=== PATIENT | female | born 1940 | race Caucasian/White ===

== ENCOUNTER 2021-07-26 10:10 | Inpatient (IN) ==
[2021-07-26] MEDS ORDERED: GLUCAGON 1 MG VIAL IM PRN (12:50)
[2021-07-26] MEDS ORDERED: ONDANSETRON 4 MG/2 ML VIAL IV PRN (12:50)
[2021-07-26] MEDS ORDERED: DEXTROSE 10% 250 ML BAG IV PRN (13:06)
[2021-07-26 13:30] LABS: Basophils % 0.3 % (0.0-0.8); Eosinophils # 0.2 10*3/uL (0.0-0.87); Eosinophils % 2.1 % (0.00-10.9); Hematocrit 35.3 VOL% (35.7-47.0); Hemoglobin 11.2 GM/DL (12.0-16.0); Immature Granulocytes % 0.4 %; Immature Granulocytes Absolute 0.04 #; Lymphocytes # 0.7 10*3/uL (1.4-4.0); Lymphocytes % 7.9 % (21.3-54.2); Mean Corpuscular HGB Conc 31.7 GM/DL (32-36); Mean Corpuscular Volume 90.1 FL (87-102); Mean Platelet Volume 9.4 FL (9.6-12.0); Monocytes # 0.7 10*3/uL (0.11-0.8); Monocytes % 7.1 % (1.7-12.7); Neutrophils % 82.2 % (38.7-73.9); Platelet Count 478 T/CUMM (130-400); Red Blood Count 3.92 MC/CUMM (3.8-5.5); Red Cell Distribution Width 13.8 % (9.3-17.3); White Blood Count 9.3 T/CUMM (4-12)
[2021-07-26 13:52] LABS: Albumin 2.4 G/DL (3.4-5.0); Bilirubin,Total 0.4 MG/DL (0.20-1.00); Calcium 9.5 MG/DL (8.5-10.1); Osmolality,Calculated 276.5 MOS/KG (273-304); Potassium 3.9 MMOL/L (3.5-5.1)
[2021-07-26] MEDS: LEVOFLOXACIN INJ 750 MG/150 ML PREMIX IV SCH (14:16)
[2021-07-26] MEDS: ALBUTEROL/IPRATROPIUM 3 ML NEB RESP TX SCH ×2 (15:10→18:55)
[2021-07-26] MEDS: SIMETHICONE CHEW 125 MG TABLET PO SCH ×2 (17:52→21:07)
[2021-07-26] MEDS: guaiFENesin/DM ER 600-30 MG TABLET PO SCH (21:06)
[2021-07-26] MEDS: ENOXAPARIN 40 MG/0.4 ML SYRINGE SUBCUT SCH (21:08)
[2021-07-27] MEDS: ALBUTEROL/IPRATROPIUM 3 ML NEB RESP TX SCH ×4 (00:45→19:46)
[2021-07-27 05:05] LABS: Basophils # 0.1 10*3/uL (0.0-0.2); Basophils % 0.6 % (0.0-0.8); Eosinophils # 0.6 10*3/uL (0.0-0.87); Eosinophils % 7.5 % (0.00-10.9); Hematocrit 31.7 VOL% (35.7-47.0); Hemoglobin 9.8 GM/DL (12.0-16.0); Immature Granulocytes % 0.5 %; Immature Granulocytes Absolute 0.04 #; Mean Corpuscular HGB Conc 30.9 GM/DL (32-36); Mean Corpuscular Volume 91.1 FL (87-102); Mean Platelet Volume 8.8 FL (9.6-12.0); Monocytes # 0.7 10*3/uL (0.11-0.8); Monocytes % 9.2 % (1.7-12.7); Neutrophils % 69.2 % (38.7-73.9); Platelet Count 380 T/CUMM (130-400); Red Blood Count 3.48 MC/CUMM (3.8-5.5); Red Cell Distribution Width 13.8 % (9.3-17.3); White Blood Count 7.7 T/CUMM (4-12)
[2021-07-27 05:27] LABS: Calcium 8.7 MG/DL (8.5-10.1); Osmolality,Calculated 280.3 MOS/KG (273-304); Potassium 3.2 MMOL/L (3.5-5.1)
[2021-07-27] MEDS: LEVOTHYROXINE 88 MCG TABLET PO SCH (06:10)
[2021-07-27] MEDS ORDERED: POTASSIUM CHLORIDE 20 MEQ TABLET PO ONE (08:30)
[2021-07-27] MEDS: guaiFENesin/DM ER 600-30 MG TABLET PO SCH ×2 (08:32→20:49)
[2021-07-27] MEDS: buPROPion XL 150 MG TABLET PO SCH (08:32)
[2021-07-27] MEDS: PANTOPRAZOLE 40 MG TABLET PO SCH (08:32)
[2021-07-27] MEDS: CETIRIZINE 10 MG TABLET PO SCH (08:32)
[2021-07-27] MEDS: SIMETHICONE CHEW 125 MG TABLET PO SCH ×4 (08:32→20:49)
[2021-07-27] MEDS: MELOXICAM 7.5 MG TABLET PO SCH (08:33)
[2021-07-27] MEDS: FLUTICASONE 50 MCG NASAL SPRAY 16 GM BOTTLE BOTH NARES SCH (10:06)
[2021-07-27] MEDS: CALCIUM (CARBONATE)/VITAMIN D 600 MG-400 UNIT TABLET PO SCH (12:19)
[2021-07-27] MEDS: MECLIZINE 25 MG TABLET PO PRN (12:21)
[2021-07-27] MEDS: LEVOFLOXACIN INJ 750 MG/150 ML PREMIX IV SCH (14:34)
[2021-07-27] MEDS: BENZONATATE 100 MG CAPSULE PO PRN (17:39)
[2021-07-27] MEDS: ENOXAPARIN 40 MG/0.4 ML SYRINGE SUBCUT SCH (20:49)
[2021-07-28] MEDS: ALBUTEROL/IPRATROPIUM 3 ML NEB RESP TX SCH ×4 (00:02→19:55)
[2021-07-28] MEDS: LEVOTHYROXINE 88 MCG TABLET PO SCH (06:08)
[2021-07-28] MEDS ORDERED: POTASSIUM CHLORIDE 20 MEQ TABLET PO ONE (09:00)
[2021-07-28] MEDS: CETIRIZINE 10 MG TABLET PO SCH (09:33)
[2021-07-28] MEDS: buPROPion XL 150 MG TABLET PO SCH (09:34)
[2021-07-28] MEDS: PANTOPRAZOLE 40 MG TABLET PO SCH (09:34)
[2021-07-28] MEDS: guaiFENesin/DM ER 600-30 MG TABLET PO SCH ×2 (09:34→21:14)
[2021-07-28] MEDS: BENZONATATE 100 MG CAPSULE PO PRN ×2 (09:34→21:15)
[2021-07-28] MEDS: MELOXICAM 7.5 MG TABLET PO SCH (09:34)
[2021-07-28] MEDS: FERROUS SULFATE 325 MG TABLET PO SCH (09:34)
[2021-07-28] MEDS: MECLIZINE 25 MG TABLET PO PRN ×2 (09:34→21:15)
[2021-07-28] MEDS: FLUTICASONE 50 MCG NASAL SPRAY 16 GM BOTTLE BOTH NARES SCH (09:35)
[2021-07-28] MEDS: SIMETHICONE CHEW 125 MG TABLET PO SCH ×4 (09:35→21:15)
[2021-07-28 11:50] LABS: Osmolality,Calculated 275.5 MOS/KG (273-304); Potassium 3.9 MMOL/L (3.5-5.1)
[2021-07-28] MEDS: CALCIUM (CARBONATE)/VITAMIN D 600 MG-400 UNIT TABLET PO SCH (12:02)
[2021-07-28] MEDS: LEVOFLOXACIN INJ 750 MG/150 ML PREMIX IV SCH (14:34)
[2021-07-28] MEDS: ACETAMINOPHEN 325 MG TABLET PO PRN (16:02)
[2021-07-28] MEDS: ENOXAPARIN 40 MG/0.4 ML SYRINGE SUBCUT SCH (21:15)
[2021-07-29] MEDS: ALBUTEROL/IPRATROPIUM 3 ML NEB RESP TX SCH ×4 (00:10→19:45)
[2021-07-29 05:54] LABS: Calcium 9.2 MG/DL (8.5-10.1)
[2021-07-29] MEDS: LEVOTHYROXINE 88 MCG TABLET PO SCH (06:25)
[2021-07-29] MEDS ORDERED: FUROSEMIDE 40 MG/4 ML VIAL IV ONE (09:00)
[2021-07-29] MEDS: CETIRIZINE 10 MG TABLET PO SCH (09:02)
[2021-07-29] MEDS: PANTOPRAZOLE 40 MG TABLET PO SCH (09:02)
[2021-07-29] MEDS: guaiFENesin/DM ER 600-30 MG TABLET PO SCH ×2 (09:03→21:38)
[2021-07-29] MEDS: SIMETHICONE CHEW 125 MG TABLET PO SCH ×4 (09:03→21:38)
[2021-07-29] MEDS: MECLIZINE 25 MG TABLET PO PRN ×2 (09:03→21:38)
[2021-07-29] MEDS: MELOXICAM 7.5 MG TABLET PO SCH (09:03)
[2021-07-29] MEDS: FLUTICASONE 50 MCG NASAL SPRAY 16 GM BOTTLE BOTH NARES SCH (09:04)
[2021-07-29] MEDS: buPROPion XL 150 MG TABLET PO SCH (09:08)
[2021-07-29] MEDS: BENZONATATE 100 MG CAPSULE PO PRN ×2 (11:41→21:38)
[2021-07-29] MEDS: CALCIUM (CARBONATE)/VITAMIN D 600 MG-400 UNIT TABLET PO SCH (11:41)
[2021-07-29] MEDS: LEVOFLOXACIN INJ 750 MG/150 ML PREMIX IV SCH (14:38)
[2021-07-29] MEDS: ENOXAPARIN 40 MG/0.4 ML SYRINGE SUBCUT SCH (21:37)
[2021-07-30] MEDS: ALBUTEROL/IPRATROPIUM 3 ML NEB RESP TX SCH ×5 (01:00→18:00)
[2021-07-30 05:48] LABS: Basophils % 0.3 % (0.0-0.8); Eosinophils # 0.4 10*3/uL (0.0-0.87); Eosinophils % 4.7 % (0.00-10.9); Hematocrit 34.4 VOL% (35.7-47.0); Hemoglobin 10.8 GM/DL (12.0-16.0); Immature Granulocytes % 0.7 %; Immature Granulocytes Absolute 0.07 #; Lymphocytes # 0.7 10*3/uL (1.4-4.0); Lymphocytes % 7.4 % (21.3-54.2); Mean Corpuscular HGB Conc 31.4 GM/DL (32-36); Mean Corpuscular Volume 88.7 FL (87-102); Mean Platelet Volume 8.6 FL (9.6-12.0); Monocytes # 0.8 10*3/uL (0.11-0.8); Monocytes % 8.6 % (1.7-12.7); Neutrophils % 78.3 % (38.7-73.9); Platelet Count 422 T/CUMM (130-400); Red Blood Count 3.88 MC/CUMM (3.8-5.5); Red Cell Distribution Width 13.9 % (9.3-17.3); White Blood Count 9.5 T/CUMM (4-12)
[2021-07-30 06:05] LABS: Calcium 9.4 MG/DL (8.5-10.1); Osmolality,Calculated 265.2 MOS/KG (273-304); Potassium 3.6 MMOL/L (3.5-5.1)
[2021-07-30] MEDS: LEVOTHYROXINE 88 MCG TABLET PO SCH (06:34)
[2021-07-30] MEDS: guaiFENesin/DM ER 600-30 MG TABLET PO SCH ×2 (09:18→21:14)
[2021-07-30] MEDS: PANTOPRAZOLE 40 MG TABLET PO SCH (09:18)
[2021-07-30] MEDS: CETIRIZINE 10 MG TABLET PO SCH (09:18)
[2021-07-30] MEDS: FERROUS SULFATE 325 MG TABLET PO SCH (09:18)
[2021-07-30] MEDS: MECLIZINE 25 MG TABLET PO PRN (09:19)
[2021-07-30] MEDS: FLUTICASONE 50 MCG NASAL SPRAY 16 GM BOTTLE BOTH NARES SCH (09:19)
[2021-07-30] MEDS: SIMETHICONE CHEW 125 MG TABLET PO SCH ×4 (09:19→21:14)
[2021-07-30] MEDS: MELOXICAM 7.5 MG TABLET PO SCH (09:19)
[2021-07-30] MEDS: buPROPion XL 150 MG TABLET PO SCH (09:20)
[2021-07-30] MEDS: CALCIUM (CARBONATE)/VITAMIN D 600 MG-400 UNIT TABLET PO SCH (11:20)
[2021-07-30] MEDS: LEVOFLOXACIN INJ 750 MG/150 ML PREMIX IV SCH (13:25)
[2021-07-30] MEDS ORDERED: CEFEPIME 2,000 MG in SODIUM CHLORIDE 0.9% 100 ML IV SCH (20:00)
[2021-07-30] MEDS ORDERED: hydrOXYzine HCL 10 MG TABLET PO PRN (20:06)
[2021-07-30] MEDS: CEFEPIME 1,000 MG in SODIUM CHLORIDE 0.9% 100 ML IV SCH (21:15)
[2021-07-30] MEDS: ENOXAPARIN 40 MG/0.4 ML SYRINGE SUBCUT SCH (21:15)
[2021-07-31] MEDS: ACETAMINOPHEN 325 MG TABLET PO PRN (00:13)
[2021-07-31] MEDS: ALBUTEROL/IPRATROPIUM 3 ML NEB RESP TX SCH ×5 (00:20→20:01)
[2021-07-31] MEDS: CEFEPIME 1,000 MG in SODIUM CHLORIDE 0.9% 100 ML IV SCH ×4 (03:38→20:26)
[2021-07-31] MEDS: LEVOTHYROXINE 88 MCG TABLET PO SCH (06:21)
[2021-07-31] MEDS: guaiFENesin/DM ER 600-30 MG TABLET PO SCH ×2 (08:40→20:25)
[2021-07-31] MEDS: PANTOPRAZOLE 40 MG TABLET PO SCH (08:40)
[2021-07-31] MEDS: buPROPion XL 150 MG TABLET PO SCH (08:40)
[2021-07-31] MEDS: SIMETHICONE CHEW 125 MG TABLET PO SCH ×4 (08:40→20:25)
[2021-07-31] MEDS: MELOXICAM 7.5 MG TABLET PO SCH (08:40)
[2021-07-31] MEDS: MECLIZINE 25 MG TABLET PO PRN (08:40)
[2021-07-31] MEDS: FLUTICASONE 50 MCG NASAL SPRAY 16 GM BOTTLE BOTH NARES SCH (08:41)
[2021-07-31] MEDS: CETIRIZINE 10 MG TABLET PO SCH (08:46)
[2021-07-31] MEDS: CALCIUM (CARBONATE)/VITAMIN D 600 MG-400 UNIT TABLET PO SCH (13:00)
[2021-07-31] MEDS: ENOXAPARIN 40 MG/0.4 ML SYRINGE SUBCUT SCH (20:26)
[2021-08-01] MEDS: ALBUTEROL/IPRATROPIUM 3 ML NEB RESP TX SCH ×4 (01:00→19:45)
[2021-08-01] MEDS: CEFEPIME 1,000 MG in SODIUM CHLORIDE 0.9% 100 ML IV SCH ×4 (02:44→20:38)
[2021-08-01] MEDS: LEVOTHYROXINE 88 MCG TABLET PO SCH (05:36)
[2021-08-01] MEDS: FERROUS SULFATE 325 MG TABLET PO SCH (09:28)
[2021-08-01] MEDS: SIMETHICONE CHEW 125 MG TABLET PO SCH ×4 (09:29→20:38)
[2021-08-01] MEDS: PANTOPRAZOLE 40 MG TABLET PO SCH (09:29)
[2021-08-01] MEDS: CETIRIZINE 10 MG TABLET PO SCH (09:29)
[2021-08-01] MEDS: buPROPion XL 150 MG TABLET PO SCH (09:29)
[2021-08-01] MEDS: guaiFENesin/DM ER 600-30 MG TABLET PO SCH ×2 (09:29→20:39)
[2021-08-01] MEDS: MELOXICAM 7.5 MG TABLET PO SCH (09:29)
[2021-08-01] MEDS: FLUTICASONE 50 MCG NASAL SPRAY 16 GM BOTTLE BOTH NARES SCH (09:32)
[2021-08-01] MEDS: CALCIUM (CARBONATE)/VITAMIN D 600 MG-400 UNIT TABLET PO SCH (12:03)
[2021-08-01] MEDS: ENOXAPARIN 40 MG/0.4 ML SYRINGE SUBCUT SCH (20:40)
[2021-08-02] MEDS: CEFEPIME 1,000 MG in SODIUM CHLORIDE 0.9% 100 ML IV SCH ×4 (03:24→20:39)
[2021-08-02] MEDS: LEVOTHYROXINE 88 MCG TABLET PO SCH (05:33)
[2021-08-02] MEDS: ALBUTEROL/IPRATROPIUM 3 ML NEB RESP TX SCH ×3 (07:45→19:21)
[2021-08-02 08:23] LABS: Basophils % 0.3 % (0.0-0.8); Eosinophils # 0.7 10*3/uL (0.0-0.87); Eosinophils % 7.2 % (0.00-10.9); Hematocrit 33.4 VOL% (35.7-47.0); Hemoglobin 10.5 GM/DL (12.0-16.0); Immature Granulocytes % 0.6 %; Immature Granulocytes Absolute 0.06 #; Lymphocytes % 9.9 % (21.3-54.2); Mean Corpuscular HGB Conc 31.4 GM/DL (32-36); Mean Corpuscular Volume 89.1 FL (87-102); Mean Platelet Volume 8.6 FL (9.6-12.0); Monocytes # 0.8 10*3/uL (0.11-0.8); Monocytes % 8.2 % (1.7-12.7); Neutrophils % 73.8 % (38.7-73.9); Platelet Count 462 T/CUMM (130-400); Red Blood Count 3.75 MC/CUMM (3.8-5.5); Red Cell Distribution Width 14.1 % (9.3-17.3); White Blood Count 9.8 T/CUMM (4-12)
[2021-08-02 08:41] LABS: Alanine Aminotransferase 35 U/L (13-56); Albumin 2.2 G/DL (3.4-5.0); Alkaline Phosphatase 112 U/L (45-117); Aspartate Amino Transferase 30 U/L (0-37); Bilirubin,Total < 0.39 MG/DL (0.20-1.00); Blood Urea Nitrogen 9 MG/DL (7-18); Carbon Dioxide 27 MMOL/L (21-32); Chloride 104 MMOL/L (98-107); Glucose 102 MG/DL (74-106); Osmolality,Calculated 273.7 MOS/KG (273-304); Potassium 3.7 MMOL/L (3.5-5.1); Sodium 138 MMOL/L (136-145); Total Protein 6.6 G/DL (6.4-8.2)
[2021-08-02] MEDS: FLUTICASONE 50 MCG NASAL SPRAY 16 GM BOTTLE BOTH NARES SCH (09:14)
[2021-08-02] MEDS: buPROPion XL 150 MG TABLET PO SCH (09:15)
[2021-08-02] MEDS: SIMETHICONE CHEW 125 MG TABLET PO SCH ×4 (09:15→20:40)
[2021-08-02] MEDS: MELOXICAM 7.5 MG TABLET PO SCH (09:16)
[2021-08-02] MEDS: guaiFENesin/DM ER 600-30 MG TABLET PO SCH ×2 (09:16→20:40)
[2021-08-02] MEDS: PANTOPRAZOLE 40 MG TABLET PO SCH (09:16)
[2021-08-02] MEDS: CETIRIZINE 10 MG TABLET PO SCH (09:16)
[2021-08-02] MEDS: CALCIUM (CARBONATE)/VITAMIN D 600 MG-400 UNIT TABLET PO SCH (12:00)
[2021-08-02] MEDS: ACETAMINOPHEN 325 MG TABLET PO PRN (17:12)
[2021-08-02] MEDS: MECLIZINE 25 MG TABLET PO PRN (20:40)
[2021-08-02] MEDS: ENOXAPARIN 40 MG/0.4 ML SYRINGE SUBCUT SCH (20:40)
[2021-08-02] MEDS: BENZONATATE 100 MG CAPSULE PO PRN (20:40)
[2021-08-03] MEDS: ALBUTEROL/IPRATROPIUM 3 ML NEB RESP TX SCH ×4 (01:09→19:38)
[2021-08-03] MEDS: CEFEPIME 1,000 MG in SODIUM CHLORIDE 0.9% 100 ML IV SCH ×3 (03:10→15:00)
[2021-08-03 05:47] LABS: Basophils % 0.3 % (0.0-0.8); Eosinophils # 0.7 10*3/uL (0.0-0.87); Eosinophils % 6.9 % (0.00-10.9); Hematocrit 34.3 VOL% (35.7-47.0); Hemoglobin 10.6 GM/DL (12.0-16.0); Immature Granulocytes % 0.5 %; Immature Granulocytes Absolute 0.05 #; Lymphocytes # 0.9 10*3/uL (1.4-4.0); Lymphocytes % 8.1 % (21.3-54.2); Mean Corpuscular HGB Conc 30.9 GM/DL (32-36); Mean Corpuscular Volume 90.5 FL (87-102); Mean Platelet Volume 9.1 FL (9.6-12.0); Monocytes # 0.7 10*3/uL (0.11-0.8); Monocytes % 6.7 % (1.7-12.7); Neutrophils % 77.5 % (38.7-73.9); Platelet Count 475 T/CUMM (130-400); Red Blood Count 3.79 MC/CUMM (3.8-5.5); Red Cell Distribution Width 14.1 % (9.3-17.3); White Blood Count 10.6 T/CUMM (4-12)
[2021-08-03] MEDS: LEVOTHYROXINE 88 MCG TABLET PO SCH (05:52)
[2021-08-03 06:12] LABS: Albumin 2.2 G/DL (3.4-5.0); Bilirubin,Total 0.4 MG/DL (0.20-1.00); Calcium 9.1 MG/DL (8.5-10.1); Osmolality,Calculated 273.7 MOS/KG (273-304); Potassium 3.6 MMOL/L (3.5-5.1); Total Protein 6.9 G/DL (6.4-8.2)
[2021-08-03] MEDS: MELOXICAM 7.5 MG TABLET PO SCH (08:48)
[2021-08-03] MEDS: guaiFENesin/DM ER 600-30 MG TABLET PO SCH ×2 (08:48→21:41)
[2021-08-03] MEDS: buPROPion XL 150 MG TABLET PO SCH (08:48)
[2021-08-03] MEDS: CETIRIZINE 10 MG TABLET PO SCH (08:49)
[2021-08-03] MEDS: PANTOPRAZOLE 40 MG TABLET PO SCH (08:49)
[2021-08-03] MEDS: FLUTICASONE 50 MCG NASAL SPRAY 16 GM BOTTLE BOTH NARES SCH (09:01)
[2021-08-03] MEDS: SIMETHICONE CHEW 125 MG TABLET PO SCH ×4 (09:02→21:41)
[2021-08-03 11:37] LABS: Arterial Base Excess iSTAT 4 MMOL/L (-2.5-2.5); Arterial Bicarbonate iSTAT 28.3 MMOL/L (20-26); Arterial O2 Saturation iSTAT 98 % (95-100); Arterial PCO2 iSTAT 40 MM HG (35-48); Arterial PO2 iSTAT 106 MM HG (80-95); Arterial Total CO2 iSTAT 29 MMO/L (23-27); Arterial pH iSTAT 7.457 (7.35-7.45)
[2021-08-03] MEDS: CALCIUM (CARBONATE)/VITAMIN D 600 MG-400 UNIT TABLET PO SCH (12:44)
[2021-08-03 15:48] LABS: Rheumatoid Factor < 15 IU/ML (<15)
[2021-08-03] MEDS: MEROPENEM 500 MG in SODIUM CHLORIDE 0.9% 100 ML IV SCH ×2 (16:34→21:42)
[2021-08-03] MEDS: methylPREDNISolone SOD SUC 40 MG/1 ML VIAL IV SCH ×2 (16:34→21:42)
[2021-08-03] MEDS ORDERED: LEVOFLOXACIN INJ 750 MG/150 ML PREMIX IV SCH (17:00)
[2021-08-03] MEDS: VANCOMYCIN INJ 1,000 MG in SODIUM CHLORIDE 0.9% 250 ML IV SCH (18:51)
[2021-08-03] MEDS: DORNASE ALFA 2.5 MG/2.5 ML VIAL RESP TX SCH (19:38)
[2021-08-03] MEDS: ENOXAPARIN 40 MG/0.4 ML SYRINGE SUBCUT SCH (21:40)
[2021-08-03] MEDS: BENZONATATE 100 MG CAPSULE PO PRN (21:44)
[2021-08-03] MEDS: MECLIZINE 25 MG TABLET PO PRN (21:44)
[2021-08-04] MEDS: ALBUTEROL/IPRATROPIUM 3 ML NEB RESP TX SCH ×4 (00:04→19:48)
[2021-08-04] MEDS: MEROPENEM 500 MG in SODIUM CHLORIDE 0.9% 100 ML IV SCH ×4 (03:22→21:28)
[2021-08-04] MEDS: methylPREDNISolone SOD SUC 40 MG/1 ML VIAL IV SCH ×4 (03:53→21:24)
[2021-08-04 04:32] LABS: Basophils % 0.1 % (0.0-0.8); Hematocrit 33.5 VOL% (35.7-47.0); Hemoglobin 10.6 GM/DL (12.0-16.0); Immature Granulocytes % 0.7 %; Immature Granulocytes Absolute 0.07 #; Lymphocytes # 0.4 10*3/uL (1.4-4.0); Lymphocytes % 3.5 % (21.3-54.2); Mean Corpuscular HGB Conc 31.6 GM/DL (32-36); Mean Corpuscular Volume 89.1 FL (87-102); Mean Platelet Volume 9.3 FL (9.6-12.0); Monocytes # 0.2 10*3/uL (0.11-0.8); Monocytes % 1.8 % (1.7-12.7); Neutrophils % 93.9 % (38.7-73.9); Platelet Count 491 T/CUMM (130-400); Red Blood Count 3.76 MC/CUMM (3.8-5.5); Red Cell Distribution Width 14.1 % (9.3-17.3); White Blood Count 9.9 T/CUMM (4-12)
[2021-08-04] MEDS: VANCOMYCIN INJ 1,000 MG in SODIUM CHLORIDE 0.9% 250 ML IV SCH (04:38)
[2021-08-04 04:55] LABS: Alanine Aminotransferase 27 U/L (13-56); Albumin 2.1 G/DL (3.4-5.0); Alkaline Phosphatase 121 U/L (45-117); Aspartate Amino Transferase 26 U/L (0-37); Bilirubin,Total < 0.39 MG/DL (0.20-1.00); Blood Urea Nitrogen 8 MG/DL (7-18); Calcium 9.3 MG/DL (8.5-10.1); Carbon Dioxide 25 MMOL/L (21-32); Chloride 103 MMOL/L (98-107); Glucose 133 MG/DL (74-106); Potassium 3.4 MMOL/L (3.5-5.1); Sodium 136 MMOL/L (136-145); Total Protein 6.6 G/DL (6.4-8.2)
[2021-08-04 04:56] LABS: Hypochromia 1+; Lymphocytes 4 % (20-55); Microcytosis Slight; Total Cells Counted 100
[2021-08-04 04:57] LABS: Ovalocytes Slight; Platelet Estimate Increased; Polychromasia Slight
[2021-08-04] MEDS: LEVOTHYROXINE 88 MCG TABLET PO SCH (05:52)
[2021-08-04] MEDS: DORNASE ALFA 2.5 MG/2.5 ML VIAL RESP TX SCH ×2 (07:28→19:54)
[2021-08-04] MEDS: buPROPion XL 150 MG TABLET PO SCH (08:09)
[2021-08-04] MEDS: guaiFENesin/DM ER 600-30 MG TABLET PO SCH ×2 (08:10→21:24)
[2021-08-04] MEDS: SIMETHICONE CHEW 125 MG TABLET PO SCH ×4 (08:10→21:37)
[2021-08-04] MEDS: MELOXICAM 7.5 MG TABLET PO SCH (08:10)
[2021-08-04] MEDS: POTASSIUM CHLORIDE 20 MEQ TABLET PO ONE ×2 (08:11→09:44)
[2021-08-04] MEDS: CETIRIZINE 10 MG TABLET PO SCH (08:11)
[2021-08-04] MEDS: FERROUS SULFATE 325 MG TABLET PO SCH (08:11)
[2021-08-04] MEDS: PANTOPRAZOLE 40 MG TABLET PO SCH (08:11)
[2021-08-04 08:35] LABS: Arterial Base Excess iSTAT 3 MMOL/L (-2.5-2.5); Arterial Bicarbonate iSTAT 26.5 MMOL/L (20-26); Arterial O2 Saturation iSTAT 87 % (95-100); Arterial PCO2 iSTAT 34 MM HG (35-48); Arterial PO2 iSTAT 48 MM HG (80-95); Arterial Total CO2 iSTAT 28 MMO/L (23-27); Arterial pH iSTAT 7.498 (7.35-7.45)
[2021-08-04] MEDS: FLUTICASONE 50 MCG NASAL SPRAY 16 GM BOTTLE BOTH NARES SCH (09:43)
[2021-08-04] MEDS: QUEtiapine 25 MG TABLET PO SCH ×2 (10:02→21:24)
[2021-08-04] MEDS: CALCIUM (CARBONATE)/VITAMIN D 600 MG-400 UNIT TABLET PO SCH (11:53)
[2021-08-04] MEDS: AZITHROMYCIN INJ 500 MG in SODIUM CHLORIDE 0.9% 250 ML IV SCH (17:03)
[2021-08-04] MEDS: ENOXAPARIN 40 MG/0.4 ML SYRINGE SUBCUT SCH (21:23)
[2021-08-05] MEDS: ALBUTEROL/IPRATROPIUM 3 ML NEB RESP TX SCH ×4 (01:59→19:40)
[2021-08-05 03:24] LABS: Basophils % 0.1 % (0.0-0.8); Hematocrit 31.9 VOL% (35.7-47.0); Immature Granulocytes % 0.8 %; Immature Granulocytes Absolute 0.11 #; Lymphocytes # 0.6 10*3/uL (1.4-4.0); Lymphocytes % 4.2 % (21.3-54.2); Mean Corpuscular HGB Conc 31.3 GM/DL (32-36); Mean Corpuscular Volume 87.9 FL (87-102); Mean Platelet Volume 8.9 FL (9.6-12.0); Monocytes # 0.4 10*3/uL (0.11-0.8); Monocytes % 2.9 % (1.7-12.7); Platelet Count 483 T/CUMM (130-400); Red Blood Count 3.63 MC/CUMM (3.8-5.5); Red Cell Distribution Width 14.3 % (9.3-17.3); White Blood Count 14.6 T/CUMM (4-12)
[2021-08-05 03:41] LABS: Alanine Aminotransferase 39 U/L (13-56); Albumin 1.9 G/DL (3.4-5.0); Alkaline Phosphatase 110 U/L (45-117); Aspartate Amino Transferase 39 U/L (0-37); Bilirubin,Total < 0.39 MG/DL (0.20-1.00); Blood Urea Nitrogen 11 MG/DL (7-18); Calcium 8.7 MG/DL (8.5-10.1); Carbon Dioxide 27 MMOL/L (21-32); Chloride 108 MMOL/L (98-107); Glucose 149 MG/DL (74-106); Osmolality,Calculated 284.1 MOS/KG (273-304); Potassium 3.2 MMOL/L (3.5-5.1); Sodium 142 MMOL/L (136-145)
[2021-08-05 03:46] LABS: Lymphocytes 3 % (20-55); Platelet Estimate Adequate; Total Cells Counted 100
[2021-08-05 03:47] LABS: Hypochromia Slight; Microcytosis Slight
[2021-08-05] MEDS: MEROPENEM 500 MG in SODIUM CHLORIDE 0.9% 100 ML IV SCH ×4 (04:27→22:08)
[2021-08-05] MEDS: methylPREDNISolone SOD SUC 40 MG/1 ML VIAL IV SCH ×4 (04:27→21:34)
[2021-08-05] MEDS: LEVOTHYROXINE 88 MCG TABLET PO SCH (05:35)
[2021-08-05] MEDS: DORNASE ALFA 2.5 MG/2.5 ML VIAL RESP TX SCH ×2 (07:12→19:45)
[2021-08-05] MEDS: PANTOPRAZOLE 40 MG TABLET PO SCH (08:31)
[2021-08-05] MEDS: CETIRIZINE 10 MG TABLET PO SCH (08:31)
[2021-08-05] MEDS: guaiFENesin/DM ER 600-30 MG TABLET PO SCH ×2 (08:31→22:07)
[2021-08-05] MEDS: QUEtiapine 25 MG TABLET PO SCH (08:31)
[2021-08-05] MEDS: buPROPion XL 150 MG TABLET PO SCH (08:31)
[2021-08-05] MEDS: SIMETHICONE CHEW 125 MG TABLET PO SCH ×4 (08:32→22:07)
[2021-08-05] MEDS: MELOXICAM 7.5 MG TABLET PO SCH (08:32)
[2021-08-05] MEDS ORDERED: POTASSIUM CHLORIDE 20 MEQ TABLET PO ONE (09:30)
[2021-08-05] MEDS: FLUTICASONE 50 MCG NASAL SPRAY 16 GM BOTTLE BOTH NARES SCH (10:07)
[2021-08-05] MEDS: CALCIUM (CARBONATE)/VITAMIN D 600 MG-400 UNIT TABLET PO SCH (15:39)
[2021-08-05] MEDS: AZITHROMYCIN INJ 500 MG in SODIUM CHLORIDE 0.9% 250 ML IV SCH (16:57)
[2021-08-05] MEDS ORDERED: LORazepam 1 MG TABLET PO ONE (21:55)
[2021-08-05] MEDS: ENOXAPARIN 40 MG/0.4 ML SYRINGE SUBCUT SCH (22:07)
[2021-08-05] MEDS ORDERED: MORPHINE 2 MG/1 ML SYRINGE IV ONE (22:51)
[2021-08-05] MEDS ORDERED: CLORAZEPATE 7.5 MG TABLET PO PRN (23:00)
[2021-08-06] MEDS: ALBUTEROL/IPRATROPIUM 3 ML NEB RESP TX SCH ×3 (00:30→12:50)
[2021-08-06] MEDS: QUEtiapine 25 MG TABLET PO SCH ×2 (01:01→13:44)
[2021-08-06] MEDS: methylPREDNISolone SOD SUC 40 MG/1 ML VIAL IV SCH ×2 (03:59→13:57)
[2021-08-06] MEDS: MEROPENEM 500 MG in SODIUM CHLORIDE 0.9% 100 ML IV SCH ×2 (04:00→13:57)
[2021-08-06] MEDS: LEVOTHYROXINE 88 MCG TABLET PO SCH (05:38)
[2021-08-06 05:41] LABS: Basophils % 0.1 % (0.0-0.8); Hematocrit 36.8 VOL% (35.7-47.0); Hemoglobin 11.4 GM/DL (12.0-16.0); Immature Granulocytes % 1.3 %; Immature Granulocytes Absolute 0.26 #; Lymphocytes # 0.6 10*3/uL (1.4-4.0); Lymphocytes % 2.7 % (21.3-54.2); Mean Corpuscular Volume 88.9 FL (87-102); Mean Platelet Volume 8.5 FL (9.6-12.0); Monocytes # 0.8 10*3/uL (0.11-0.8); NRBC # 0.04 10*3/uL; Neutrophils % 91.9 % (38.7-73.9); Platelet Count 524 T/CUMM (130-400); Red Blood Count 4.14 MC/CUMM (3.8-5.5); Red Cell Distribution Width 14.7 % (9.3-17.3); White Blood Count 20.4 T/CUMM (4-12)
[2021-08-06 05:58] LABS: Alanine Aminotransferase 59 U/L (13-56); Albumin 2.2 G/DL (3.4-5.0); Alkaline Phosphatase 142 U/L (45-117); Aspartate Amino Transferase 66 U/L (0-37); Bilirubin,Total < 0.39 MG/DL (0.20-1.00); Blood Urea Nitrogen 21 MG/DL (7-18); Calcium 9.2 MG/DL (8.5-10.1); Carbon Dioxide 26 MMOL/L (21-32); Chloride 109 MMOL/L (98-107); Glucose 169 MG/DL (74-106); Osmolality,Calculated 289.1 MOS/KG (273-304); Potassium 4.9 MMOL/L (3.5-5.1); Sodium 142 MMOL/L (136-145); Total Protein 6.8 G/DL (6.4-8.2)
[2021-08-06 06:34] LABS: Hypochromia 1+; Lymphocytes 2 % (20-55); Microcytosis Slight; Nucleated Red Blood Cells 1 (0-5); Ovalocytes Slight; Total Cells Counted 100
[2021-08-06 06:35] LABS: Platelet Estimate Increased
[2021-08-06] MEDS: DORNASE ALFA 2.5 MG/2.5 ML VIAL RESP TX SCH (07:33)
[2021-08-06] MEDS ORDERED: METOPROLOL TARTRATE 25 MG TABLET PO SCH (09:00)
[2021-08-06] MEDS ORDERED: MORPHINE 2 MG/1 ML SYRINGE IV ONE (10:17)
[2021-08-06] MEDS ORDERED: MORPHINE 2 MG/1 ML SYRINGE IV PRN (10:27)
[2021-08-06 13:01] LABS: Antinuclear Ab, S 1.8 U
[2021-08-06] MEDS: FERROUS SULFATE 325 MG TABLET PO SCH (13:42)
[2021-08-06] MEDS: FLUTICASONE 50 MCG NASAL SPRAY 16 GM BOTTLE BOTH NARES SCH (13:42)
[2021-08-06] MEDS: SIMETHICONE CHEW 125 MG TABLET PO SCH (13:43)
[2021-08-06] MEDS: guaiFENesin/DM ER 600-30 MG TABLET PO SCH (13:43)
[2021-08-06] MEDS: MELOXICAM 7.5 MG TABLET PO SCH (13:43)
[2021-08-06] MEDS: buPROPion XL 150 MG TABLET PO SCH (13:44)
[2021-08-06] MEDS: CETIRIZINE 10 MG TABLET PO SCH (13:44)
[2021-08-06] MEDS: PANTOPRAZOLE 40 MG TABLET PO SCH (13:44)
[2021-08-06] MEDS: CALCIUM (CARBONATE)/VITAMIN D 600 MG-400 UNIT TABLET PO SCH (13:45)
[2021-08-06] MEDS: AZITHROMYCIN INJ 500 MG in SODIUM CHLORIDE 0.9% 250 ML IV SCH (15:03)
[2021-08-06 15:46] LABS: Fungitell Quantitative Value 52 pg/mL (<60 pg/mL)
[2021-08-06 16:07] VITALS: BP 128/86
[2021-08-12 13:31] LABS: Histoplasma Immnodiffusion Negative (Negative)
== END 2021-08-06 22:00 | disposition expired | DRG 196 ==
LOC: N.3E 10:45 → SUATTDRO 10:45 → INTOOBSV 10:45 → SUATTDRO 07-28 08:30
PROVIDERS: ADMIT Internal Medicine; ATTEND Family Medicine